=== PATIENT | female | born 1985 | race Hispanic/Latino ===

== ENCOUNTER 2018-05-29 11:45 | Emergency (ER) | payer OTHER ==
--- NOTE | 2018-05-29 12:38 | ED PDOC ---
Arrival/HPI - General Chief Complaint: Headache Time Seen by Provider: 05/29/18 12:34 Historian: Patient - History of Present Illness Narrative History of Present Illness (Text): 05/29/18 12:35 32 y/o F w/ h/o migraines presenting to Emergency department complaining of a migraine for the past 24 hours. Patient states the pain is bi-temporal, radiating towards the front of her head with photophobia and nausea. Patient denies any fevers, chills, chest pain, shortness of breath, abdominal pain, vomiting, diarrhea, back pain, neck pain, dizziness, or any other complaint. She was told by her neurologist to present to the ED for a treatment cocktail. The patient reports receiving Botox injections every 3 months for her symptoms and is currently not on any prophylactic medications for her migraines. Neurologist: Dr. Saavedra Time/Duration: 24 hours Symptom Onset: Gradual Symptom Course: Unchanged Severity Level: Severe Activities at Onset: Rest Context: Home Past Medical History - Provider Review Nursing Documentation Reviewed: Yes - Travel History Have you recently traveled outside [place] w/in the past 3 mons?: No - Infectious Disease Hx of Infectious Diseases: None - Tetanus Immunization Tetanus Immunization: Unknown - Cardiac Hx Cardiac Disorders: No - Pulmonary Hx Respiratory Disorders: No - Neurological Hx Neurological Disorder: No - HEENT Hx HEENT Disorder: No - Renal Hx Renal Disorder: No - Endocrine/Metabolic Hx Endocrine Disorders: No - Hematological/Oncological Hx Blood Disorders: No - Integumentary Hx Dermatological Disorder: No - Musculoskeletal/Rheumatological Hx Musculoskeletal Disorders: No - Gastrointestinal Hx Gastrointestinal Disorders: Yes Hx Colitis: Yes - Genitourinary/Gynecological Hx Genitourinary Disorders: No - Psychiatric Hx Psychophysiologic Disorder: No Hx Substance Use: No - Surgical History Hx Tonsillectomy: Yes Other/Comment: laparoscopy, left knee surgery, sinus surgery, endoscopy, colonoscopy - Anesthesia Hx Anesthesia: Yes Hx Anesthesia Reactions: No Hx Malignant Hyperthermia: No - Suicidal Assessment Feels Threatened In Home Enviroment: No Family/Social History - Physician Review Nursing Documentation Reviewed: Yes Family/Social History: Unknown Family HX Smoking Status: Never Smoked Hx Alcohol Use: No Hx Substance Use: No Hx Substance Use Treatment: No Allergies/Home Meds Allergies/Adverse Reactions: Allergies No Known Allergies Allergy (Verified 05/29/18 12:29) Home Medications: Home Meds Medication Instructions Recorded Confirmed Mesalamine [Lialda] 2 tab PO DAILY 03/11/15 05/29/18 Review of Systems - Physician Review All systems were reviewed & negative as marked: Yes - Review of Systems Constitutional: Normal Eyes: Normal ENT: Normal Respiratory: Normal. absent: SOB, Cough Cardiovascular: Normal. absent: Chest Pain Gastrointestinal: Nausea. absent: Abdominal Pain, Vomiting Genitourinary Female: Normal. absent: Dysuria, Frequency Musculoskeletal: Normal. absent: Back Pain, Neck Pain Skin: Normal. absent: Rash Neurological: Headache. absent: Dizziness Endocrine: Normal Hemo/Lymphatic: Normal Psychiatric: Normal Physical Exam Temperature: Afebrile Blood Pressure: Normal Pulse: Tachycardic Respiratory Rate: Normal Appearance: Positive for: Well-Appearing, Non-Toxic, Uncomfortable Pain Distress: Severe Mental Status: Positive for: Alert and Oriented X 3 - Systems Exam Head: Present: Atraumatic, Normocephalic Pupils: Present: PERRL Extroacular Muscles: Present: EOMI Conjunctiva: Present: Normal Mouth: Present: Moist Mucous Membranes Neck: Present: Normal Range of Motion. No: Meningeal Signs, MIDLINE TENDERNESS, Paraspinal Tenderness Respiratory/Chest: Present: Clear to Auscultation, Good Air Exchange. No: Respiratory Distress, Accessory Muscle Use, Wheezes, Rales Cardiovascular: Present: Normal S1, S2, Tachycardic Abdomen: Present: Normal Bowel Sounds. No: Tenderness, Distention, Peritoneal Signs Upper Extremity: Present: Normal Inspection. No: Cyanosis, Edema Lower Extremity: Present: Normal Inspection. No: Edema Neurological: Present: GCS=15, CN II-XII Intact, Speech Normal, Normal Sensory Function, Normal Cerebellar Funct (normal [id number]), Memory Normal Skin: Present: Warm, Dry, Normal Color. No: Rashes Lymphatic: No: Cervical Adenopathy Psychiatric: Present: Alert, Oriented x 3, Normal Insight, Normal Concentration Medical Decision Making ED Course and Treatment: 05/29/18 12:39 Impression: 32 year old female presents to the emergency department complaining of a migraine x 1 day. Plan: --CTH --Decadron --Depacon --Toradol --Benadryl --Reglan -- Reassess and disposition Progress Notes: Spoke to Dr. Saavedra, pt's neurologist, is aware that pt is in the emergency department. He requests patient to be given 4mg of Decadron, Reglan, 500mg of Depacon infused over 60 minutes, Magnesium, and Benadryl. 05/29/18 16:20 CTH negative for acute intracranial pathology. Patient informed of findings and reports marked relief of headache. She states she will follow up with Dr. Saavedra. Scripts provided per Dr. Saavedra's request. She is stable for discharge. Disposition/Present on Arrival - Present on Arrival Any Indicators Present on Arrival: No History of DVT/PE: No History of Uncontrolled Diabetes: No Urinary Catheter: No History Surgical Site Infection Following: None - Disposition Have Diagnosis and Disposition been Completed?: Yes Diagnosis: Status migrainosus Disposition: HOME/ ROUTINE Disposition Time: 16:20 Patient Plan: Discharge Condition: IMPROVED Discharge Instructions (ExitCare): Migraine Headache (DC) Prescriptions: Propranolol [Inderal] 40 mg PO DAILY 5 Days #5 tab SUMAtriptan succinate [Imitrex Tab] 25 mg PO BID 2 Days #4 tab Referrals: Alfonso KAT,Cedrick Beltran MD [Primary Care Provider] - Follow up with primary Juan Saavedra MD [Staff Provider] - Follow up with primary Forms: [employer] ([place]ian), WORK NOTE
[2018-05-29] MEDS ORDERED: DiphenhydrAMINE 50 mg/ml Inj IVP STA (12:51)
[2018-05-29] MEDS ORDERED: Sodium Chloride 0.9% 1,000 ML IV STA (12:53)
[2018-05-29] MEDS ORDERED: Magnesium Sulfate 2 gm/50 ml 2 GM/50 ML BAG IVPB ONE (12:54)
[2018-05-29] MEDS ORDERED: Valproate 0 MG in Sodium Chloride 0.9% 100 ML IVPB ONE (12:56)
[2018-05-29 13:02] VITALS: BMI 28.3
[2018-05-29] MEDS ORDERED: Dexamethasone 4 mg/1 ml IVP STA (13:02)
[2018-05-29] MEDS ORDERED: Valproate 500 MG in Sodium Chloride 0.9% 100 ML IVPB ONE (13:24)
[2018-05-29 14:02] VITALS: RESP 18
[2018-05-29 14:13] LABS: BASO # 0.03 K/mm3 (0.0-2.0); BASO % 0.3 % (0.0-3.0); EOS % 0.2 % (1.5-5.0); GRAN # 6.23 (1.4-6.5); GRAN % 64.2 % (50.0-68.0); HEMOGLOBIN 13.3 g/dL (12.0-16.0); LYMPH # 2.9 (1.2-3.4); LYMPH % 29.6 % (22.0-35.0); MEAN CELL VOLUME 87.5 fl (80.0-105.0); MEAN CORPUSCULAR HEMOGLOBIN 29.7 pg (25.0-35.0); MEAN CORPUSCULAR HGB CONC 33.9 g/dl (31.0-37.0); MEAN PLATELET VOLUME 9.2 fl (7.0-11.0); MONO # 0.6 (0.1-0.6); MONO % 5.7 % (1.0-6.0); RBC 4.48 10^6/uL (3.5-6.1); WHITE BLOOD COUNT 9.7 10^3/ul (4.5-11.0)
[2018-05-29 14:19] LABS: ALB/GLOB RATIO 1.4 (1.1-1.8); ALBUMIN 4.4 g/dL (3.0-4.8); ALT/SGPT 29 U/L (7-56); AST/SGOT 20 U/L (14-36); BLOOD UREA NITROGEN 9 mg/dL (7-21); CALCIUM 9.2 mg/dL (8.4-10.5); GFR NON-AFRICAN AMERICAN > 60
[2018-05-29 15:01] LABS: HCG,QUALITATIVE URINE NEGATIVE (NEGATIVE)
[2018-05-29 15:02] LABS: URINE APPEARANCE CLEAR (CLEAR); URINE BILIRUBIN NEGATIVE (NEGATIVE); URINE BLOOD NEGATIVE (NEGATIVE); URINE COLOR YELLOW (YELLOW); URINE GLUCOSE (UA) NEGATIVE (NEGATIVE); URINE LEUKOCYTE ESTERASE NEGATIVE Leu/uL (NEGATIVE); URINE PROTEIN NEGATIVE mg/dL (<30 mg/dL); URINE UROBILINOGEN 0.2 E.U./dL (<1 E.U./dL)
--- NOTE | 2018-05-29 16:47 | CT ---
Date of service: 05/29/2018 PROCEDURE: CT HEAD WITHOUT CONTRAST. HISTORY: migraine COMPARISON: 03/11/2015 TECHNIQUE: Axial computed tomography images were obtained through the head/brain without intravenous contrast. Radiation dose: Total exam DLP = 857.95 mGy-cm. This CT exam was performed using one or more of the following dose reduction techniques: Automated exposure control, adjustment of the mA and/or kV according to patient size, and/or use of iterative reconstruction technique. FINDINGS: HEMORRHAGE: No intracranial hemorrhage. BRAIN: No mass effect or edema. No atrophy or chronic microvascular changes. Stable right basal ganglia calcification as compared to prior CT examination. No evidence of acute infarct. VENTRICLES: Unremarkable. No hydrocephalus. CALVARIUM: Unremarkable. PARANASAL SINUSES: Unremarkable as visualized. No significant inflammatory changes. MASTOID AIR CELLS: Unremarkable as visualized. No inflammatory changes. OTHER FINDINGS: None. IMPRESSION: No intracranial mass, hemorrhage or evidence of acute in
[2018-05-29 17:20] VITALS: BP 123/63; PULSE 85; TEMP 98.1; O2SAT 99
== END 2018-05-29 17:20 | disposition home or self-care (01) ==
LOC: ED 11:45
DX: G43.901 Migraine, unspecified, not intractable, with status migrainosus (principal)
CPT/HCPCS: 70450; 80053; 81003; 84703; 85025; 96365; 96375; 99285; J1100; J1200; J1885; J2765; J7030